=== PATIENT | male | born 1965 | race Caucasian/White ===

== ENCOUNTER 2021-03-30 05:37 | Outpatient (CLI) | payer BC ==
[~2021-03-30] VITALS: Ht 175.3 cm; Wt 122.6 kg
[~2021-03-30 05:37] MED LIST: ALPR1T PO; AMIT150T3 PO; AMIT25TA9 PO; ARPZ10T; CYCL10TA9 PO; DCS100C PO; DIPH50CA; GBPN100C PO; HYDR1TAB PO; IBP800T PO; IBUP-792; LAMO100T69 PO; LAMO150T2 PO; NAPR-243 PO; NAPR550T PO; OXYC-12 PO; PHEN15CA67 PO; PROP1TAB77 PO; TRAZ150T42 PO; TRM50T PO; VARE1TAB17 PO; ZLP10T PO
[2021-03-30] MEDS ORDERED: ASPI-999 PO (10:53)
[2021-03-30] MEDS ORDERED: MONT4GRA PO (10:53)
== END 2021-03-30 15:51 | disposition home or self-care (01) ==
LOC: PREOP 05:37
PROVIDERS: ATTEND Surgery
DX: Z01.818 Encounter for other preprocedural examination (principal)

== ENCOUNTER 2021-04-06 09:16 | Day surgery (SDC) | payer BC ==
[2021-04-06] VITALS (7 sets, daily range): BP systolic 129–168; BP diastolic 65–88
[~2021-04-06 09:16] MED LIST changes: +ASPI-999 PO; +MONT4GRA PO
[2021-04-06] MEDS ORDERED: LACTATED RINGERS 1,000 ML IV STA (09:25)
[2021-04-06] MEDS ORDERED: PROPOFOL INJECTION 50 ML IV ONE (10:28)
[2021-04-06] MEDS ORDERED: MIDAZOLAM 2 MG/2 ML (VERSED) VIAL ONE (10:28)
--- NOTE | 2021-04-06 11:02 | Progress Note-Post Operative ---
Post-Operative Progess Note Surgeon (s)/Urgent Care Physician Assistant (s) Surgeon ALEK CARMONA DO Urgent Care Physician Assistant: na Pre-Operative Diagnosis family hx colon cancer, hx polyps Post-Operative Diagnosis diverticulosis Procedure & Operative Findings Date of Procedure 04/06/21 Procedure Performed/Findings colonoscopy Anesthesia Type per hop farmer Estimated Blood Loss Estimated blood loss (mL): none Specimens/Packing Specimens Removed na ALEK CARMONA DO Apr 06, 2021 11:02
--- NOTE | 2021-04-06 11:03 | Progress Note-Pre Operative ---
Pre-Operative Progress Note H&P Reviewed The H&P was reviewed, patient examined and no changes noted. Date Seen by Provider: Apr 06, 2021 Time Seen by Provider: 10:30 Date H&P Reviewed: Apr 06, 2021 Time H&P Reviewed: 10:30 Pre-Operative Diagnosis: family hx colon cancer, hx polyps ALEK CARMONA DO Apr 06, 2021 11:03
--- NOTE | 2021-04-06 11:05 | Discharge Inst-Simple/Standard ---
Discharge Inst-Standard Patient Instructions/Follow Up Plan of Care/Instructions/FU: [place] 5 years, if any issues before that be seen at that time. Activity as Tolerated: Yes Discharge Diet: Regular Diet (high fiber) ALEK CARMONA DO Apr 06, 2021 11:05
--- NOTE | 2021-04-06 11:54 | Anesthesia-General Post-Op ---
MAC Patient Condition Mental Status/LOC: Same as Preop Cardiovascular: Satisfactory Nausea/Vomiting: Absent Respiratory: Satisfactory Pain: Controlled Complications: Absent Post Op Complications Complications None Follow Up Care/Instructions Patient Instructions None needed. Anesthesiology Discharge Order Discharge Order Patient is doing well, no complaints, stable vital signs, no apparent adverse anesthesia problems. No complications reported per nursing. FLAQUITA RIZO CRNA Apr 06, 2021 11:54
--- NOTE | 2021-04-06 15:25 | OPERATIVE REPORT ---
DATE OF SERVICE: 04/06/2021 PREOPERATIVE DIAGNOSES: Family history of colon cancer and history of polyps. POSTOPERATIVE DIAGNOSIS: Diverticulosis. PROCEDURE PERFORMED: Colonoscopy. SURGEON: Alek Gilbert DO ANESTHESIA: Per SENIOR ENGINEERING TECHNICIAN. ESTIMATED BLOOD LOSS: None. COMPLICATIONS: None. INDICATIONS FOR PROCEDURE: The patient is a 55-year-old male with family history of colon cancer and history of polyps himself. He understands the risks and benefits of the procedure and wished to proceed with procedure. Consent was signed in the chart. DESCRIPTION OF PROCEDURE: The patient was taken to the endoscopy suite and placed in the left lateral recumbent position. Timeout was performed. Digital rectal exam was performed. No palpable polyps, masses or ulcerations. Scope was inserted in the rectum and advanced all the way to cecum with minimal difficulty. Prep was adequate. Scope was then slowly retracted back. No polyps, masses or ulcerations within the cecum, ascending, transverse, descending and sigmoid colon. Minimal amount of diverticulosis present. Scope was then slowly retracted back into the rectum, where it was also retroflexed noting no other pathology. Scope was returned to its normal position, slowly withdrawn until completely removed. The patient tolerated the procedure well without any complications and taken to the recovery room in a stable condition. RECOMMENDATIONS: The patient will need repeat colonoscopy in 5 years. Any issues before that be seen at that time. With diverticulosis, I recommend high fiber diet. Job ID: [id number] DocumentID: [id number] Dictated Date: 04/06/2021 11:04:51 Associate Director Of Development Date: 04/06/2021 15:24:33 Dictated By: ALEK GILBERT DO
== END 2021-04-06 11:50 | disposition home or self-care (01) ==
LOC: ENDO 09:16
PROVIDERS: ATTEND Surgery
DX: Z12.11 Encounter for screening for malignant neoplasm of colon (principal); K57.30 Diverticulosis of large intestine without perforation or abscess without bleeding; F32.9 Major depressive disorder, single episode, unspecified; F41.9 Anxiety disorder, unspecified; E66.01 Morbid (severe) obesity due to excess calories; Z80.0 Family history of malignant neoplasm of digestive organs; Z86.010 Personal history of colon polyps; Z79.82 Long term (current) use of aspirin; Z79.899 Other long term (current) drug therapy; Z87.891 Personal history of nicotine dependence; Z68.41 Body mass index [BMI] 40.0-44.9, adult; Z79.891 Long term (current) use of opiate analgesic; Z98.890 Other specified postprocedural states; Z79.02 Long term (current) use of antithrombotics/antiplatelets